=== PATIENT | female | born 1950 | race Caucasian/White ===

== ENCOUNTER → 2016-09-07 | Outpatient (CLI) | payer BC, OTHER | END | disposition home or self-care (01) | LOC: SMMGROBB 09:00 | PROVIDERS: ATTEND Internal Medicine | DX: Z12.31 Encounter for screening mammogram for malignant neoplasm of breast (principal) | CPT/HCPCS: G0202 ==

== ENCOUNTER → 2016-09-16 | Outpatient (CLI) | payer BC | END | disposition home or self-care (01) | LOC: CFH 10:35 | PROVIDERS: ATTEND Internal Medicine | DX: R92.8 Other abnormal and inconclusive findings on diagnostic imaging of breast (principal); Z80.3 Family history of malignant neoplasm of breast | CPT/HCPCS: G0206 ==

== ENCOUNTER 2019-07-20 19:15 | Emergency (ER) | payer MEDICARE, OTHER ==
[~2019-07-20] VITALS: Ht 170.2 cm; Wt 62.9 kg
--- NOTE | 2019-07-20 19:34 | NUR ---
MD AT BEDSIDE TO ASSESS PT
--- NOTE | 2019-07-20 19:40 | NUR ---
THIS IS A 68Y F THAT COMES IN TONIGHT FOR A NOSEBLEED LASTING ABOUT 50MIN. BLEEDING STOPPED JUST PRIOR TO ARRIVAL. PT HAS HX OF NOSEBLEED IN THE PAST AND NEEDED ENT TO CAUTERIZE. PT RESTING COMFORTABLY ON CHAIR, AT BEDSIDE DARSHAN
[2019-07-20] MEDS ORDERED: OXYMETAZOLINE NASAL SPRAY 0.05%,30ML ONE (19:43)
[2019-07-20] MEDS ORDERED: SILVER NITRATE STICK TP ONE ×2 (19:54→20:00)
[2019-07-20] MEDS ORDERED: OXYMETAZOLINE NASAL SPRAY 0.05%,30ML NAS ONE (20:00)
[2019-07-20] MEDS ORDERED: TRANEXAMIC ACID 100 MG/ML, 10ML ONE (20:21)
[2019-07-20] MEDS ORDERED: TRANEXAMIC ACID 100 MG/ML, 10ML TP ONE (20:30)
[2019-07-20 21:07] VITALS: BP 144/92
--- NOTE | 2019-07-20 21:16 | NUR ---
Patient/Caregiver given discharge instructions and they have confirmed that they understand the instructions. Patient ambulatory with steady gait.
== END 2019-07-20 21:17 | disposition home or self-care (01) ==
LOC: ED 21:02
DX: R04.0 Epistaxis (principal); I10 Essential (primary) hypertension; Z90.710 Acquired absence of both cervix and uterus; Z90.49 Acquired absence of other specified parts of digestive tract
CPT/HCPCS: 30901; 99284